=== PATIENT | female | born 1990 | race Caucasian/White ===

== ENCOUNTER 2019-05-03 14:14 | Emergency (ER) | payer MEDICAID ==
[~2019-05-03] VITALS: Ht 167.6 cm; Wt 90.9 kg
[~2019-05-03 14:14] MED LIST: NO HOME MEDS
[2019-05-03 18:27] VITALS: BP 123/92
== END 2019-05-03 18:28 | disposition home or self-care (01) ==
LOC: ER 14:15
DX: F41.9 Anxiety disorder, unspecified (principal); F50.9 Eating disorder, unspecified; G89.29 Other chronic pain; Z88.8 Allergy status to other drugs, medicaments and biological substances; Z72.89 Other problems related to lifestyle
CPT/HCPCS: 99281

== ENCOUNTER 2019-11-29 11:50 | Emergency (ER) | payer MEDICAID ==
[~2019-11-29] VITALS: Ht 160 cm; Wt 90.9 kg
[2019-11-29 12:33] LABS: BASOPHILS % (AUTO) 0.5 % (0-1); EOSINOPHILS # (AUTO) 0.1 X10'3 (0-0.9); EOSINOPHILS % (AUTO) 0.5 % (0-6); HEMATOCRIT 41.4 % (35.0-45.0); HEMOGLOBIN 14.2 g/dl (12.0-16.0); LYMPHOCYTES # (AUTO) 3.7 X10'3 (1.1-4.8); LYMPHOCYTES % (AUTO) 35.3 % (21-51); MEAN CORPUSCULAR HEMOGLOBIN 27.7 PG (27.0-31.0); MEAN CORPUSCULAR HGB CONC 34.4 g/dL (33.0-36.5); MEAN CORPUSCULAR VOLUME 80.6 FL (78-98); MEAN PLATELET VOLUME 8.2 FL (7.4-10.4); MONOCYTES # (AUTO) 0.6 X10'3 (0-0.9); MONOCYTES % (AUTO) 6.2 % (2-12); NEUTROPHILS % (AUTO) 57.5 % (42-75); PLATELET COUNT 265 X10'3 (140-440); RED BLOOD COUNT 5.14 X10'6 (4.20-5.60); RED CELL DISTRIBUTION WIDTH 12.8 % (11.5-14.5); WHITE BLOOD COUNT 10.4 X10'3 (4.5-11.0)
[2019-11-29 12:35] LABS: URINE HCG NEGATIVE (NEG)
[2019-11-29] MEDS ORDERED: ESCI20TA PO (12:38)
[2019-11-29] MEDS ORDERED: CLON-527 PO (12:38)
[2019-11-29] MEDS ORDERED: HYDR50TA65 PO (12:38)
--- NOTE | 2019-11-29 12:40 | NUR ---
CALLED [facility] FOR MED LIST. INFORMED THAT PT PICKED UP A RX FOR KLONIPIN 1MG #120 ON 11/18/19. PER PT SHE STATES SHE DOES NOT KNOW WHERE THE PILLS ARE. NOTIFIED NITIN SOLO SHE HAS D/C IT ON MED REC
[2019-11-29 12:41] LABS: URINE AMPHETAMINE SCREEN NEGATIVE (Neg); URINE BARBITUATE SCREEN NEGATIVE (Neg); URINE BENZODIAZEPINES SCREEN NEGATIVE (Neg); URINE CANNABINOID SCREEN NEGATIVE (Neg); URINE COCAINE SCREEN NEGATIVE (Neg); URINE METHADONE SCREEN NEGATIVE (Neg); URINE OPIATE SCREEN NEGATIVE (Neg); URINE PHENCYCLIDINE SCREEN NEGATIVE (Neg)
[2019-11-29 12:46] LABS: ALANINE AMINOTRANSFERASE 102 U/L (12-78); ALBUMIN 4.3 G/DL (3.4-5.0); ALBUMIN/GLOBULIN RATIO 1.2 (1.1-1.5); ALKALINE PHOSPHATASE 110 IU/L (46-116); ANION GAP 13 (8-16); ASPARTATE AMINO TRANSFERASE 62 U/L (10-37); BILIRUBIN,TOTAL 0.2 MG/DL (0.1-1.0); BLOOD UREA NITROGEN 3 MG/DL (7-18); BUN/CREATININE RATIO 4.3 (6.6-38.0); CALCIUM 8.4 MG/DL (8.5-10.1); CHLORIDE 104 MMOL/L (99-107); CREATININE 0.69 MG/DL (0.40-0.90); ETHANOL 0.167 GM/DL (0.0-0.010); GLUCOSE 138 MG/DL (70-104); POTASSIUM 3.5 MMOL/L (3.5-5.1); SODIUM 140 MMOL/L (135-145); TOTAL CARBON DIOXIDE 22.9 MMOL/L (24-32); eGFR > 90 ML/MIN
--- NOTE | 2019-11-29 13:00 | NUR ---
PT RESTING COMFORTABLY ON BACK. RESPIRATIONS EQUAL AND NONLABORED.
[2019-11-29] MEDS: hydrOXYzine 25 MG tablet PO PRN (14:15)
--- NOTE | 2019-11-29 14:15 | NUR ---
PT STATING SHE IS FEELING ANXIOUS, AND USUALLY DOES AFTER EATING. REQUESTS PRN ATARAX.
[2019-11-29 15:17] LABS: CLARITY,URINE CLEAR (Clear); COLOR,URINE YELLOW (Yellow); GLUCOSE, URINE NEGATIVE (Neg); KETONES,URINE NEGATIVE (Neg); LEUKOCYTE ESTERASE ,URINE TRACE (Neg); NITRITES, URINE NEGATIVE (Neg); OCCULT BLOOD,URINE NEGATIVE (Neg); PH,URINE 5.5 (4.8-8.0); PROTEIN,URINE 30 mg/dl (Neg); UROBILINOGEN,URINE 0.2 E.U/dL (0.2-1.0)
[2019-11-29 15:22] LABS: UA COLLECTION TYPE CLN CATCH MIDSTREAM
[2019-11-29 15:23] LABS: BACTERIA,URINE FEW /HPF (Neg); MUCUS STRANDS FEW /LPF (Neg); RBC,URINE 0-2 /HPF (0-2); SQUAMOUS EPITHELIAL CELL,UR FEW /LPF (FEW); WBC,URINE 0-4 /HPF (0-4)
--- NOTE | 2019-11-29 15:51 | NUR ---
Pt lying on R side with eyes closed, snoring respirations.
--- NOTE | 2019-11-29 16:00 | NUR ---
PACKET FAXED TO [facility]
--- NOTE | 2019-11-29 16:02 | NUR ---
CALLED [facility], THEY HAVE RECEIVED PACKET
--- NOTE | 2019-11-29 18:07 | NUR ---
Pt resting comfrotably on R side with eyes closed. Respirations equal and nonlabored.
--- NOTE | 2019-11-29 19:30 | NUR ---
recieved report, assumed care. Pt. laying in bed speaking to .
--- NOTE | 2019-11-29 20:08 | NUR ---
moved pt. from rt side of nurses station to left to get her out from under lights. Pt. resting with eyes closed, rr even and non-labored.
--- NOTE | 2019-11-30 03:29 | NUR ---
pt resting quietly with eyes closed. RR even and non-labored.
--- NOTE | 2019-11-30 06:30 | NUR ---
pt is sleeping
--- NOTE | 2019-11-30 07:30 | NUR ---
pt is sleeping
[2019-11-30] MEDS: ESCITALOPRAM OXALATE 5 MG TABLET PO SCH (08:00)
--- NOTE | 2019-11-30 08:48 | NUR ---
pt is sleeping
--- NOTE | 2019-11-30 10:00 | NUR ---
pt is resting in her room no issues.
--- NOTE | 2019-11-30 11:00 | NUR ---
pt is resting in her room no issues.
--- NOTE | 2019-11-30 12:00 | NUR ---
pt is resting in her room no issues.
--- NOTE | 2019-11-30 13:00 | NUR ---
pt is resting in her room no issues.
--- NOTE | 2019-11-30 14:00 | NUR ---
pt is resting in her room no issues.
--- NOTE | 2019-11-30 15:00 | NUR ---
pt is resting in her room no issues.
--- NOTE | 2019-11-30 16:00 | NUR ---
pt is resting in her room no issues.
--- NOTE | 2019-11-30 17:00 | NUR ---
pt is resting in her room no issues.
--- NOTE | 2019-11-30 18:19 | NUR ---
Recieved report, assumed care. Pt. sitting at bedside finishing dinner.
[2019-11-30] MEDS: hydrOXYzine 25 MG tablet PO PRN (18:41)
--- NOTE | 2019-11-30 19:12 | NUR ---
pt. smiling, states feeling rested and well. asked for prn hydroxazine.
--- NOTE | 2019-11-30 23:04 | NUR ---
Pt. in bed, asleeping. Appears to be comfortable.
--- NOTE | 2019-11-30 23:23 | NUR ---
pt. laying with eyes closed, rr even and non-labored.
[2019-12-01] MEDS: ESCITALOPRAM OXALATE 5 MG TABLET PO SCH (08:53)
--- NOTE | 2019-12-01 13:30 | NUR ---
PT ATE 100% OF HER LUNCH
--- NOTE | 2019-12-01 16:14 | NUR ---
[facility] [place] [facility] AND INFO GIVEN ON PT.
--- NOTE | 2019-12-01 17:47 | NUR ---
JOSE ALEJANDRO FROM [facility] CALLED. PT IS ACCEPTED AT [facility] BY MAYI BAUTISTA. TIME ACCEPTED 713, 12-01-19
[2019-12-01 18:08] VITALS: BP 129/80
[2019-12-01] MEDS: hydrOXYzine 25 MG tablet PO PRN (20:04)
== END 2019-12-01 21:09 ==
LOC: ER 11:51
DX: R45.851 Suicidal ideations (principal); F32.9 Major depressive disorder, single episode, unspecified; R44.0 Auditory hallucinations; G89.29 Other chronic pain; Z72.89 Other problems related to lifestyle; Z79.899 Other long term (current) drug therapy
CPT/HCPCS: 36415; 80053; 80305; 80320; 81001; 81025; 84443; 85025; 87088; 99285; Q0177